=== PATIENT | male | born 1950 ===

== ENCOUNTER → 2021-04-12 13:59 | Outpatient (BNVA) | payer MEDICARE, MEDICAID, SELFPAY | PROVIDERS: Visit Provider Internal Medicine ==

== ENCOUNTER → 2021-04-16 14:47 | Outpatient (BNVA) | payer MEDICARE, MEDICAID, SELFPAY | PROVIDERS: Visit Provider Internal Medicine | DX: M86.671 Other chronic osteomyelitis, right ankle and foot (principal) | CPT/HCPCS: 99212 ==